=== PATIENT | female | born 1940 | race Caucasian/White ===

== ENCOUNTER 2016-07-20 20:21 | Emergency (ER) | payer MEDICARE, BC ==
[2016-07-20 20:44] VITALS: BP 191/102
--- NOTE | 2016-07-20 21:17 | EDM.PDOC ---
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 She is unsure if she still has her appendix or gallbladder. In the last month she's had pencil thin stools without abdominal pain or bleeding. No nausea or vomiting or abdominal distention. Because of the persistent abnormal stools, she did consult with her physician who arranged for colonoscopy for which she is scheduled on July 27. She lives in the [facility] and is planning on returning home. However since yesterday afternoon she started developing pressure in the rectum. It's uncomfortable enough that it would keep her awake tonight. There's been no change in her stools, her last stool was earlier today. No change in her appetite and no recurrence of abdominal pain or distention. The pressure is newly makes her worry. She is wondering if there might be obstruction or there is anything urgent. Because of chronic back pain she uses hydrocodone, may be a half tablet of 5/ 325 twice a week at most. She takes Mirapex regularly and is not constipated She has no history of hemorrhoid that she is aware of She has had colonoscopy 4 times in the past, had a few polyps removed, none suspicious. Last year and stiff colonoscopy she had an immunological bowel test done, this was negative. Rectal Pain Score (Numeric/FACES): 5 - Related Data Allergies Allergy/AdvReac Type Severity Reaction Status Date / Time carisoprodol [From Soma] Allergy Rash Verified 07/20/16 20:45 citalopram Allergy Cannot Verified 07/20/16 20:45 Remember IVP dye Allergy Swelling Uncoded 07/20/16 20:45 Home Meds: Home Meds Famotidine [Pepcid] 20 mg PO DAILY 07/20/16 [History] Hydrocodone/Acetaminophen [Hydrocodon-Acetaminophen 5-325] 1 - 2 each PO Q4H PRN #10 tablet 07/20/16 [Rx] Hydrocodone/Acetaminophen [Hydrocodone-Acetaminophen 5-325] 1 - 2 tab PO Q4H PRN 07/20/16 [History] Levothyroxine 25 mcg PO ACBREAKFAST 07/20/16 [History] Lisinopril 10 mg PO DAILY 07/20/16 [History] Montelukast [Singulair] 10 mg PO BEDTIME 07/20/16 [History] Temazepam [Temazepam] 1 tab PO BEDTIME 07/20/16 [History] Past Medical History Cardiovascular History: Reports: Hypertension Gastrointestinal History: Reports: GERD, Other (See Below) Other Gastrointestinal History: Thin Bowel movements Genitourinary History: Reports: Other (See Below) Other Genitourinary History: 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: Musculoskeletal History: Reports: Osteoporosis Psychiatric History: Reports: Anxiety Oncologic (Cancer) History: Reports: Other (See Below) Other Oncologic History: tonsil CA - Infectious Disease History Infectious Disease History: Reports: Chicken Pox, Measles, Mumps - Past Surgical History HEENT Surgical History: Reports: Tonsillectomy Other HEENT Surgeries/Procedures: Tonsil CA removal and radiation GI Surgical History: Reports: Cholecystectomy, Other (See Below) Other GI Surgeries/Procedures: perforated ulcer repair colon repair Female Surgical History: Reports: Breast Biopsy Social & Family History - Tobacco Use Smoking Status *Q: Never Smoker Second Hand Smoke Exposure: No - Caffeine Use Caffeine Use: Reports: Coffee - Alcohol Use Days Per Week of Alcohol Use: 0 - Recreational Drug Use Recreational Drug Use: No ED ROS GENERAL - Review of Systems Review Of Systems: See Below Constitutional: Denies: Fever, Chills, Weakness, Diaphoresis, Decreased Appetite , Weight Loss, Weight Gain HEENT: Reports: No Symptoms Respiratory: Reports: No Symptoms Cardiovascular: Reports: No Symptoms Endocrine: Reports: No Symptoms GI/Abdominal: Reports: Other (Change of stool caliber over the last month as documented above). Denies: Abdominal Pain, Black Stool, Bloody Stool, Constipation, Diarrhea, Decreased Appetite, Distension, Nausea, Vomiting : Reports: No Symptoms Musculoskeletal: Reports: Back Pain (Chronic) Skin: Reports: No Symptoms Neurological: Reports: No Symptoms. Denies: Numbness, Tingling, Trouble Speaking, Difficulty Walking, Change in Speech, Gait Disturbance Psychiatric: Reports: Other (Concern/worry) Immunologic: Reports: No Symptoms ED EXAM, GI/ABD - Physical Exam Exam: See Below Exam Limited By: No Limitations General Appearance: Alert, Anxious, Mild Distress, Other (Elevated blood pressure and mild elevation of pulse, temperature normal no difficulty speaking or breathing) Eyes: Bilateral: Normal Appearance Ears: Normal External Exam Nose: Normal Inspection Throat/Mouth: Normal Inspection, Normal Oropharynx Head: Atraumatic, Normocephalic Neck: Normal Inspection Respiratory/Chest: No Respiratory Distress, No Accessory Muscle Use Cardiovascular: Normal Peripheral Pulses, Regular Rate, Rhythm GI/Abdominal: Normal Bowel Sounds, Soft, Non-Tender, No Distention, No Mass, Other (Multiple scars from previous surgery). No: Guarding, Rebound, Rigidity Rectal (Female) Exam: Other (Small external tag, No rectal pain tenderness or fissure, No rectal mass, rectum patulous with scant brown stool). No: Black Stool, Bloody Stool, Decreased Rectal Tone, Fecal Impaction, Hemorrhoids, Mass Back Exam: Normal Inspection Extremities: Normal Inspection Neurological: Alert, Oriented, No Motor/Sensory Deficits Psychiatric: Normal Affect, Normal Mood, Anxious Skin Exam: Warm, Dry, Normal Color, No Rash Lymphatic: No Adenopathy Course - Vital Signs Last Recorded V/S: Last Vital Signs Temp 35.2 C 07/20/16 21:03 Pulse 105 H 07/20/16 21:03 Resp 16 07/20/16 21:03 BP 191/102 H 07/20/16 21:03 Pulse Ox 97 07/20/16 21:03 - Re-Assessments/Exams Free Text/Narrative Re-Assessment/Exam: 07/20/16 22:20 76-year-old female with change of bowel habits for 1 month. No abdominal pain or rectal bleeding weight change fevers or other symptoms. New onset rectal pressure since yesterday afternoon. Again noted change in her other intestinal symptoms. Benign abdominal exam Rectum is empty from scant stool which is Hemoccult negative Impression Rectal pressure Change of stool appearance Further evaluation is recommended such as colonoscopy which has already been arranged and possibly CT scan. Patient would prefer to return home to the [facility], there is no reason why these investigations could not be deferred until she returns home as long as they are done in the next 1-2 weeks. She was given a small renewal of her pain medication. 07/20/16 22:22 Departure - Departure Time of Disposition: 21:52 Disposition: Home, Self-Care 01 Condition: Undetermined Clinical Impression: Rectal pressure, Change in stool caliber - Discharge Information Prescriptions: Hydrocodone/Acetaminophen [Hydrocodon-Acetaminophen 5-325] 1 - 2 each PO Q4H PRN #10 tablet PRN Reason: Moderate to severe pain Instructions: Colonoscopy Referrals: PCP,None [Primary Care Provider] - Forms: ED Department Discharge Additional Instructions: Examination tonight shows no evidence of obstruction, your abdomen is soft and nontender. There is no evidence of hernia No evidence of fecal impaction and no evidence of rectal area mass or lesion. Stool testing was negative for blood. Pressure in your rectum is caused perhaps by something pressing on the rectal area, a pinched nerve, partial obstruction, or possibly something in the higher parts of the bowel such as sigmoid or the colon. Take pain medication as needed Make a follow-up appointment with your doctor to discuss whether to do a CT scan to check your abdomen Keep your appointment for colonoscopy as scheduled Get rechecked promptly if you have severe abdominal pain, repeated vomiting, high fever, rectal bleeding or black stools, or weakness or collapse.
== END 2016-07-20 22:09 | disposition home or self-care (01) ==
LOC: JP.ED 20:21
DX: K62.89 Other specified diseases of anus and rectum (principal); R19.4 Change in bowel habit; I10 Essential (primary) hypertension; M19.90 Unspecified osteoarthritis, unspecified site; K21.9 Gastro-esophageal reflux disease without esophagitis; Z88.8 Allergy status to other drugs, medicaments and biological substances; Z90.49 Acquired absence of other specified parts of digestive tract; Z79.899 Other long term (current) drug therapy; Z98.890 Other specified postprocedural states
CPT/HCPCS: 82272; 99283; 99284